=== PATIENT | male | born 1990 | race Caucasian/White ===

== ENCOUNTER 2021-02-19 05:22 | Emergency (ER) | payer BC ==
[2021-02-19 06:22] LABS: HEMOGLOBIN 16.2 gm/dl (14.0-17.5); RED BLOOD COUNT 5.13 M/UL (4.20-5.50); WHITE BLOOD COUNT 14.9 K/UL (4.5-11.0)
[2021-02-19 06:54] LABS: BUN/CREATININE RATIO 17 (0-10)
== END 2021-02-19 11:45 | disposition other institution (70) ==
LOC: ER1 05:22
PROVIDERS: Family Medicine
DX: S32.401A Unspecified fracture of right acetabulum, initial encounter for closed fracture (principal); S22.41XA Multiple fractures of ribs, right side, initial encounter for closed fracture; S05.01XA Injury of conjunctiva and corneal abrasion without foreign body, right eye, initial encounter; S50.811A Abrasion of right forearm, initial encounter; V49.40XA Driver injured in collision with unspecified motor vehicles in traffic accident, initial encounter; Y92.410 Unspecified street and highway as the place of occurrence of the external cause; Z90.89 Acquired absence of other organs; Z23 Encounter for immunization
CPT/HCPCS: 70450; 71260; 72125; 80053; 83690; 85025; 90471; 90715; 96374; 96375; 99285; J1885; J2270; J2405; Q9967

== ENCOUNTER 2021-03-19 00:16 | Emergency (ER) | payer BC ==
[2021-03-19 03:59] LABS: HEMOGLOBIN 15.1 gm/dl (14.0-17.5); RED BLOOD COUNT 4.85 M/UL (4.20-5.50); WHITE BLOOD COUNT 9.8 K/UL (4.5-11.0)
[2021-03-19 04:40] LABS: BUN/CREATININE RATIO 20 (0-10)
== END 2021-03-19 06:05 | disposition home or self-care (01) ==
LOC: ER1 00:16
PROVIDERS: Family Medicine
DX: M54.6 Pain in thoracic spine (principal); R10.10 Upper abdominal pain, unspecified; R07.9 Chest pain, unspecified; Z79.899 Other long term (current) drug therapy
CPT/HCPCS: 80053; 82550; 82553; 83690; 83874; 84484; 85025; 93005; 99285; Q9967

== ENCOUNTER 2022-05-30 12:08 | Emergency (ER) | payer BC ==
[2022-05-30 17:47] LABS: HEMOGLOBIN 17.4 gm/dl (14.0-17.5); RED BLOOD COUNT 5.44 M/UL (4.20-5.50); WHITE BLOOD COUNT 18.9 K/UL (4.5-11.0)
[2022-05-30 18:09] LABS: BUN/CREATININE RATIO 17 (0-10)
[2022-05-30] MEDS ORDERED: BENTYL 20MG TAB20 MG PO (20:13)
[2022-05-30] MEDS ORDERED: IBUPROFEN600 MG PO (20:13)
[2022-05-30] MEDS ORDERED: ZOFRAN ODT 4 MG4 MG PO (20:13)
== END 2022-05-30 20:46 | disposition home or self-care (01) ==
LOC: ER1 12:08
PROVIDERS: Physician Assistant
DX: K80.20 Calculus of gallbladder without cholecystitis without obstruction (principal); R31.9 Hematuria, unspecified
CPT/HCPCS: 80053; 81001; 83690; 85025; 96374; 96375; 99284; J1885; J2405